=== PATIENT | female | born 1995 | race Caucasian/White ===

== ENCOUNTER 2017-08-14 22:29 | Inpatient (IN) | payer MEDICAID ==
[~2017-08-14] VITALS: Ht 167.6 cm; Wt 59.1 kg
[~2017-08-14 22:29] MED LIST: FLUO-191 PO
[2017-08-15] MEDS ORDERED: DiphenhydrAMINE HCL 50 MG/ML VIAL IM ONE (00:15)
[2017-08-15] MEDS ORDERED: HALOPERIDOL LACTATE 5 MG/ML VIAL IM ONE (00:15)
[2017-08-15] MEDS ORDERED: LORazepam 2 MG/ML VIAL IM ONE (00:15)
[2017-08-15 01:50] LABS: AMPHET/METH SCREEN,URINE POSITIVE (NEGATIVE); BARBITURATE SCREEN, URINE NEGATIVE (NEGATIVE); BENZODIAZEPINES SCREEN,URINE NEGATIVE (NEGATIVE); CANNABINOID SCREEN,URINE NEGATIVE (NEGATIVE); COCAINE SCREEN,URINE NEGATIVE (NEGATIVE); METHADONE SCREEN, URINE NEGATIVE (NEGATIVE); OPIATE SCREEN,URINE NEGATIVE (NEGATIVE); PHENCYCLIDINE SCREEN,URINE NEGATIVE (NEGATIVE)
[2017-08-15] MEDS ORDERED: LORazepam 2 MG TABLET PO PRN (03:45)
[2017-08-15] MEDS ORDERED: ZOLPIDEM TARTRATE 10 MG TABLET PO PRN (03:45)
[2017-08-15] MEDS ORDERED: OLANZapine 5 MG RAPDIS TABLET PO PRN (03:45)
[2017-08-15 04:16] LABS: BASOPHILS % (AUTO) 0.8 % (0.0-2.0); EOSINOPHILS % (AUTO) 3.5 % (1.0-6.0); HEMOGLOBIN 11.6 g/dL (12.0-16.0); LYMPHOCYTES % (AUTO) 40.3 % (22.0-44.0); MEAN CORPUSCULAR HEMOGLOBIN 28.5 pg (26.0-34.0); MEAN CORPUSCULAR HGB CONC 33.2 G/dL (31.0-37.0); MEAN CORPUSCULAR VOLUME 86 fL (80-100); MONOCYTES # (AUTO) 0.6 K/uL (0.1-1.0); MONOCYTES % (AUTO) 7.8 % (2.0-9.0); NEUTROPHILS # (AUTO) 3.5 K/uL (1.8-7.7); NEUTROPHILS % (AUTO) 47.6 % (40.0-70.0); PLATELET COUNT (AUTO) 304 K/uL (150-450); RED BLOOD CELL COUNT(AUTO) 4.07 MIL/uL (4.00-5.20); RED CELL DISTRIBUTION WIDTH 13.2 % (11.5-14.5)
[2017-08-15 04:24] LABS: ANION GAP 8 mmol/L (8-16); CALCIUM, TOTAL 8.8 mg/dL (8.8-10.5); CARBON DIOXIDE 27 mmol/L (22-29); CHLORIDE 103 mmol/L (98-107); CREATININE 0.72 mg/dL (0.60-1.30); GLOMERULAR FILTR. RATE CALC > 60 mL/min (>60); GLUCOSE,RANDOM 69 mg/dL (70-110); POTASSIUM 3.5 mmol/L (3.5-5.1); SODIUM SERUM 138 mmol/L (136-145); UREA NITROGEN, BLOOD 14 mg/dL (7-18)
[2017-08-15 04:29] LABS: ALANINE AMINOTRANSFERASE 28 U/L (12-78); ALBUMIN 3.6 g/dL (3.4-5.0); ALKALINE PHOSPHATASE 68 U/L (46-116); ASPARTATE AMINOTRANSFERASE 32 U/L (15-37)
[2017-08-15 05:27] VITALS: BP 100/60
[2017-08-15 08:07] VITALS: BP 110/68
[2017-08-15 09:00] VITALS: BP 110/68
[2017-08-15] MEDS ORDERED: GuaiFENesin/D-METHORPHAN [SUGAR-FREE] 200-20MG/10 ML SYRUP UDCUP PO PRN (12:00)
[2017-08-15] MEDS ORDERED: MAGNESIUM HYDROXIDE SUSPENSION 30 ML UDCUP PO PRN (12:00)
[2017-08-15] MEDS ORDERED: HydrOXYzine PAMOATE 50 MG CAPSULE PO PRN (12:00)
[2017-08-15] MEDS ORDERED: ACETAMINOPHEN 325 MG TABLET PO PRN (12:00)
[2017-08-15] MEDS ORDERED: LOPERAMIDE HCL 2 MG CAPSULE PO PRN (12:00)
[2017-08-15] MEDS ORDERED: PROMETHAZINE HCL 25 MG TABLET PO PRN (12:00)
[2017-08-15] MEDS ORDERED: TUBERCULIN, PURIFIED PROTEIN DERIVATIVE 5 TU/0.1 ML SYG ID ONE (12:00)
[2017-08-15] MEDS ORDERED: MAG HYDROX/AL HYDROX/SIMETH ES 30 ML SUSPENSION UDCUP PO PRN (12:00)
[2017-08-15 16:16] VITALS: BP 110/67
[2017-08-15 16:30] VITALS: BP 110/67
[2017-08-15] MEDS: THIAMINE HCL 100 MG TABLET PO SCH (17:00)
[2017-08-15] MEDS: OLANZapine 5 MG RAPDIS TABLET PO SCH (20:34)
[2017-08-16 05:34] VITALS: BP 112/70
[2017-08-16 08:11] VITALS: BP 93/63
[2017-08-16 08:24] LABS: CHOL/HDL RATIO 1.7 (3.9-5.7)
[2017-08-16] MEDS: MULTIVITAMINS WITH MINERALS, THERAPEUTIC TABLET PO SCH (09:10)
[2017-08-16] MEDS: NALTREXONE HCL 50 MG TABLET PO SCH (09:10)
[2017-08-16] MEDS: THIAMINE HCL 100 MG TABLET PO SCH ×2 (09:10→17:10)
[2017-08-16] MEDS: FLUoxetine HCL 20 MG CAPSULE PO SCH (09:10)
[2017-08-16] MEDS: FOLIC ACID 1 MG TABLET PO SCH (09:10)
[2017-08-16] MEDS ORDERED: NALT50TA PO (15:20)
[2017-08-16] MEDS ORDERED: OLAN5TAB30 PO (15:20)
[2017-08-16] MEDS ORDERED: FLUO-191 PO (15:20)
[2017-08-16 16:05] VITALS: BP 109/65
[2017-08-16] MEDS: OLANZapine 5 MG RAPDIS TABLET PO SCH (20:08)
[2017-08-17 07:25] VITALS: BP 106/62
[2017-08-17 08:11] VITALS: BP 98/58
[2017-08-17] MEDS ORDERED: NALT50TA6 PO (09:09)
[2017-08-17] MEDS ORDERED: OLAN5TAB40 PO (09:10)
[2017-08-17] MEDS: NALTREXONE HCL 50 MG TABLET PO SCH (09:56)
[2017-08-17] MEDS: FLUoxetine HCL 20 MG CAPSULE PO SCH (09:56)
[2017-08-17] MEDS: FOLIC ACID 1 MG TABLET PO SCH (09:56)
[2017-08-17] MEDS: MULTIVITAMINS WITH MINERALS, THERAPEUTIC TABLET PO SCH (09:56)
[2017-08-17] MEDS: THIAMINE HCL 100 MG TABLET PO SCH ×2 (09:56→16:15)
[2017-08-17 16:22] VITALS: BP 113/60
[2017-08-17] MEDS: OLANZapine 5 MG RAPDIS TABLET PO SCH ×2 (20:26→20:41)
[2017-08-18 08:00] VITALS: BP 110/59
[2017-08-18] MEDS: THIAMINE HCL 100 MG TABLET PO SCH ×2 (09:41→16:42)
[2017-08-18] MEDS: NALTREXONE HCL 50 MG TABLET PO SCH (09:41)
[2017-08-18] MEDS: FOLIC ACID 1 MG TABLET PO SCH (09:41)
[2017-08-18] MEDS: FLUoxetine HCL 20 MG CAPSULE PO SCH (09:41)
[2017-08-18] MEDS: MULTIVITAMINS WITH MINERALS, THERAPEUTIC TABLET PO SCH (09:41)
[2017-08-18 16:03] VITALS: BP 103/71
== END 2017-08-18 18:05 | disposition home or self-care (01) | DRG 750 ==
LOC: EMS 08-15 00:03 → B3A 08-15 03:30
PROVIDERS: ADMIT Psychiatry & Neurology Psychiatry; ATTEND Psychiatry & Neurology Psychiatry
DX: F25.9 Schizoaffective disorder, unspecified (principal); R45.851 Suicidal ideations; Z91.19 Patient's noncompliance with other medical treatment and regimen; F15.10 Other stimulant abuse, uncomplicated; F17.210 Nicotine dependence, cigarettes, uncomplicated; F31.9 Bipolar disorder, unspecified; Z59.0 Homelessness; Z79.899 Other long term (current) drug therapy
CPT/HCPCS: 96372; 99285; G0480; J1200; J1630; J2060

== ENCOUNTER 2017-09-13 18:48 | Emergency (ER) | payer MEDICAID ==
[~2017-09-13] VITALS: Ht 165.1 cm; Wt 59.1 kg
[~2017-09-13 18:48] MED LIST changes: +NALT50TA PO; +NALT50TA6 PO; +OLAN5TAB30 PO; +OLAN5TAB40 PO
[2017-09-13] MEDS ORDERED: HALOPERIDOL LACTATE 5 MG/ML VIAL IM ONE (19:00)
[2017-09-13] MEDS ORDERED: LORazepam 2 MG/ML VIAL IM ONE (19:00)
[2017-09-13] MEDS ORDERED: DiphenhydrAMINE HCL 50 MG/ML VIAL IM ONE (19:00)
[2017-09-13 19:39] LABS: BASOPHILS % (AUTO) 0.7 % (0.0-2.0); EOSINOPHILS % (AUTO) 1.4 % (1.0-6.0); HEMATOCRIT 32.4 % (36-46); HEMOGLOBIN 11.1 g/dL (12.0-16.0); LYMPHOCYTES # (AUTO) 1.7 K/uL (1.0-4.8); LYMPHOCYTES % (AUTO) 16.3 % (22.0-44.0); MEAN CORPUSCULAR HEMOGLOBIN 28.7 pg (26.0-34.0); MEAN CORPUSCULAR HGB CONC 34.2 G/dL (31.0-37.0); MEAN CORPUSCULAR VOLUME 84 fL (80-100); MONOCYTES % (AUTO) 9.8 % (2.0-9.0); NEUTROPHILS # (AUTO) 7.6 K/uL (1.8-7.7); NEUTROPHILS % (AUTO) 71.8 % (40.0-70.0); PLATELET COUNT (AUTO) 301 K/uL (150-450); RED BLOOD CELL COUNT(AUTO) 3.86 MIL/uL (4.00-5.20); RED CELL DISTRIBUTION WIDTH 13.1 % (11.5-14.5)
[2017-09-13 19:52] LABS: ANION GAP 11 mmol/L (8-16); CALCIUM, TOTAL 8.5 mg/dL (8.8-10.5); CARBON DIOXIDE 24 mmol/L (22-29); CHLORIDE 103 mmol/L (98-107); CREATININE 0.84 mg/dL (0.60-1.30); GLOMERULAR FILTR. RATE CALC > 60 mL/min (>60); GLUCOSE,RANDOM 103 mg/dL (70-110); POTASSIUM 3.3 mmol/L (3.5-5.1); SODIUM SERUM 138 mmol/L (136-145); UREA NITROGEN, BLOOD 15 mg/dL (7-18)
[2017-09-13 19:57] LABS: ALANINE AMINOTRANSFERASE 38 U/L (12-78); ALBUMIN 3.7 g/dL (3.4-5.0); ALKALINE PHOSPHATASE 89 U/L (46-116); ASPARTATE AMINOTRANSFERASE 55 U/L (15-37); BILIRUBIN,TOTAL 0.6 mg/dL (0.1-1.0); TOTAL PROTEIN, SERUM 7.2 g/dL (6.4-8.2)
[2017-09-13 20:06] LABS: AMPHET/METH SCREEN,URINE POSITIVE (NEGATIVE); BARBITURATE SCREEN, URINE NEGATIVE (NEGATIVE); BENZODIAZEPINES SCREEN,URINE NEGATIVE (NEGATIVE); CANNABINOID SCREEN,URINE NEGATIVE (NEGATIVE); COCAINE SCREEN,URINE NEGATIVE (NEGATIVE); METHADONE SCREEN, URINE NEGATIVE (NEGATIVE); OPIATE SCREEN,URINE NEGATIVE (NEGATIVE)
[2017-09-13 20:07] LABS: PHENCYCLIDINE SCREEN,URINE NEGATIVE (NEGATIVE)
[2017-09-14 04:00] VITALS: BP 115/70
== END 2017-09-14 07:25 | disposition home or self-care (01) ==
LOC: EMS 18:49
DX: F69 Unspecified disorder of adult personality and behavior (principal); E87.6 Hypokalemia; F15.10 Other stimulant abuse, uncomplicated; F41.9 Anxiety disorder, unspecified; F32.9 Major depressive disorder, single episode, unspecified; F12.90 Cannabis use, unspecified, uncomplicated
CPT/HCPCS: 51702; 80053; 80307; 84703; 85025; 96372; 99291; G0480; J1200; J1630; J2060

== ENCOUNTER 2018-12-08 18:31 | Emergency (ER) | payer MEDICAID ==
[~2018-12-08] VITALS: Ht 167.6 cm; Wt 72.7 kg
[2018-12-08 19:20] VITALS: BP 124/89
[2018-12-08] MEDS ORDERED: SERT50TA12 PO (19:42)
[2018-12-08] MEDS ORDERED: LORazepam 2 MG TABLET PO ONE (21:45)
[2018-12-08] MEDS ORDERED: DiphenhydrAMINE HCL 25 MG CAPSULE PO ONE (21:45)
== END 2018-12-08 22:28 | disposition home or self-care (01) ==
LOC: EMS 18:32
DX: F15.10 Other stimulant abuse, uncomplicated (principal); F41.9 Anxiety disorder, unspecified; F32.9 Major depressive disorder, single episode, unspecified

== ENCOUNTER 2019-07-10 12:54 | Emergency (ER) | payer MEDICAID ==
[~2019-07-10] VITALS: Ht 167.6 cm; Wt 95.5 kg
[~2019-07-10 12:54] MED LIST changes: +SERT50TA12 PO
[2019-07-10] MEDS ORDERED: OLAN2.5T3 PO (12:58)
[2019-07-10] MEDS ORDERED: OLANZapine 5 MG TABLET PO ONE (13:30)
[2019-07-10 14:11] VITALS: BP 123/73
== END 2019-07-10 16:00 | disposition home or self-care (01) ==
LOC: EMS 12:58
DX: F20.9 Schizophrenia, unspecified (principal); F15.90 Other stimulant use, unspecified, uncomplicated

== ENCOUNTER 2020-08-01 18:32 | Emergency (ER) | payer MEDICAID ==
[~2020-08-01] VITALS: Ht 172.7 cm; Wt 118.2 kg
[~2020-08-01 18:32] MED LIST changes: -FLUO-191 PO; -NALT50TA PO; -NALT50TA6 PO; +OLAN2.5T3 PO; -OLAN5TAB30 PO; -OLAN5TAB40 PO; -SERT50TA12 PO
[2020-08-01] MEDS ORDERED: SODIUM CHLORIDE 0.9% 2,000 ML IV ONE (19:00)
[2020-08-01] MEDS ORDERED: ONDANSETRON HCL 4 MG/2 ML VIAL IVP ONE (19:00)
[2020-08-01 19:22] LABS: BASOPHILS % (AUTO) 0.6 % (0.0-2.0); EOSINOPHILS % (AUTO) 1.9 % (1.0-6.0); HEMATOCRIT 39.1 % (36-46); HEMOGLOBIN 12.6 g/dL (12.0-16.0); LYMPHOCYTES # (AUTO) 2.3 K/uL (1.0-4.8); MEAN CORPUSCULAR HEMOGLOBIN 25.6 pg (26.0-34.0); MEAN CORPUSCULAR HGB CONC 32.3 G/dL (31.0-37.0); MEAN CORPUSCULAR VOLUME 79 fL (80-100); MONOCYTES # (AUTO) 0.6 K/uL (0.1-1.0); MONOCYTES % (AUTO) 6.2 % (2.0-9.0); NEUTROPHILS # (AUTO) 7.2 K/uL (1.8-7.7); NEUTROPHILS % (AUTO) 69.3 % (40.0-70.0); PLATELET COUNT (AUTO) 413 K/uL (150-450); RED BLOOD CELL COUNT(AUTO) 4.94 MIL/uL (4.00-5.20); RED CELL DISTRIBUTION WIDTH 14.8 % (11.5-14.5)
[2020-08-01 19:31] LABS: ANION GAP 16 mmol/L (8-16); CALCIUM, TOTAL 8.8 mg/dL (8.8-10.5); CARBON DIOXIDE 20 mmol/L (22-29); CHLORIDE 107 mmol/L (98-107); CREATININE 0.87 mg/dL (0.60-1.30); GLOMERULAR FILTR. RATE CALC > 60 mL/min (>60); GLUCOSE,RANDOM 109 mg/dL (70-110); POTASSIUM 3.6 mmol/L (3.5-5.1); SODIUM SERUM 143 mmol/L (136-145); UREA NITROGEN, BLOOD 11 mg/dL (7-18)
[2020-08-01 19:44] LABS: ALANINE AMINOTRANSFERASE 33 U/L (12-78); ALKALINE PHOSPHATASE 97 U/L (46-116); ASPARTATE AMINOTRANSFERASE 20 U/L (15-37); BILIRUBIN,TOTAL 0.1 mg/dL (0.1-1.0); HCG,QUANTITATIVE < 1 mIU/mL (0-6); LIPASE 275 U/L (73-393); TOTAL PROTEIN, SERUM 7.8 g/dL (6.4-8.2)
[2020-08-01 20:00] VITALS: BP 129/67
== END 2020-08-01 20:45 | disposition home or self-care (01) ==
LOC: EMS 18:32
DX: F10.129 Alcohol abuse with intoxication, unspecified (principal); R10.10 Upper abdominal pain, unspecified; F20.9 Schizophrenia, unspecified; F41.9 Anxiety disorder, unspecified; F32.9 Major depressive disorder, single episode, unspecified; F19.90 Other psychoactive substance use, unspecified, uncomplicated; Z86.59 Personal history of other mental and behavioral disorders; Y90.7 Blood alcohol level of 200-239 mg/100 ml
CPT/HCPCS: 80053; 82962; 83690; 84702; 85025; 96374; 99283; G0480; J2405; J7030

== ENCOUNTER 2020-11-17 03:46 | Emergency (ER) | payer MEDICAID ==
[~2020-11-17] VITALS: Ht 165.1 cm; Wt 113.6 kg
== END 2020-11-17 06:40 | disposition left against medical advice (07) ==
LOC: EMS 03:51
DX: R44.0 Auditory hallucinations (principal); F31.9 Bipolar disorder, unspecified; F41.9 Anxiety disorder, unspecified; F15.90 Other stimulant use, unspecified, uncomplicated; Z79.899 Other long term (current) drug therapy
CPT/HCPCS: 99284

== ENCOUNTER 2020-11-22 17:02 | Emergency (ER) | payer MEDICAID ==
[~2020-11-22] VITALS: Ht 165.1 cm; Wt 125.0 kg
[2020-11-22 17:17] VITALS: BP 127/81
== END 2020-11-22 20:35 | disposition left against medical advice (07) ==
LOC: EMS 17:10
DX: R11.2 Nausea with vomiting, unspecified (principal); Z53.21 Procedure and treatment not carried out due to patient leaving prior to being seen by health care provider

== ENCOUNTER 2024-10-07 12:33 | Emergency (ER) | payer OTHER ==
[~2024-10-07] VITALS: Ht 167.6 cm; Wt 156.4 kg
[~2024-10-07 12:33] MED LIST changes: +LURA60TA PO; -OLAN2.5T3 PO; +TRAZ-252 PO
[2024-10-07 12:45] VITALS: BP 121/95; PULSE 85; RESP 12; TEMP 97.5; O2SAT 100
[2024-10-07 13:06] LABS: PLATELET COUNT (AUTO) 448 K/uL (150-450); RED BLOOD CELL COUNT(AUTO) 5.49 MIL/uL (4.00-5.20); RED CELL DISTRIBUTION WIDTH 17.0 % (11.5-14.5); WHITE BLOOD COUNT (AUTO) 9.6 K/uL (4.5-11.0)
[2024-10-07 13:09] LABS: RBC MORPHOLOGY COMMENT ABNORMAL RBC MORPH
[2024-10-07 13:14] LABS: CALCIUM, TOTAL 8.4 mg/dL (8.8-10.5); CREATININE 0.74 mg/dL (0.60-1.30); GLOMERULAR FILTR. RATE CALC > 60 mL/min (>60); GLUCOSE,RANDOM 125 mg/dL (70-110); SODIUM SERUM 137 mmol/L (136-145); UREA NITROGEN, BLOOD 7 mg/dL (7-18)
[2024-10-07] MEDS ORDERED: TRAZ-257 PO (13:51)
[2024-10-07] MEDS ORDERED: GABA-529 PO (13:51)
[2024-10-07] MEDS ORDERED: XANO1CAP4 PO (13:51)
[2024-10-07] MEDS: ACETAMINOPHEN 500 MG TABLET PO ONE (14:09)
== END 2024-10-07 18:36 | disposition home or self-care (01) ==
LOC: EMS 12:39
DX: F31.9 Bipolar disorder, unspecified (principal); F41.9 Anxiety disorder, unspecified; F20.9 Schizophrenia, unspecified; F15.90 Other stimulant use, unspecified, uncomplicated; Z79.899 Other long term (current) drug therapy
CPT/HCPCS: 99284; 80048; 85025; 36415; G0480

== ENCOUNTER 2024-11-08 12:05 | Inpatient (IN) | payer MEDICAID, OTHER ==
[~2024-11-08] VITALS: Ht 175.3 cm; Wt 159.1 kg
[~2024-11-08 12:05] MED LIST changes: +GABA-529 PO; -LURA60TA PO; -TRAZ-252 PO; +TRAZ-257 PO; +XANO1CAP4 PO
[2024-11-08 12:22] VITALS: O2SAT 98
[2024-11-08 12:27] LABS: COVID AG,FIA SOURCE NASAL SWAB
[2024-11-08 12:31] LABS: PLATELET COUNT (AUTO) 426 K/uL (150-450); RED BLOOD CELL COUNT(AUTO) 4.93 MIL/uL (4.00-5.20); RED CELL DISTRIBUTION WIDTH 17.0 % (11.5-14.5); WHITE BLOOD COUNT (AUTO) 12.4 K/uL (4.5-11.0)
[2024-11-08 12:32] LABS: RBC MORPHOLOGY COMMENT ABNORMAL RBC MORPH
[2024-11-08 12:37] LABS: CALCIUM, TOTAL 8.8 mg/dL (8.8-10.5); CREATININE 0.73 mg/dL (0.60-1.30); GLOMERULAR FILTR. RATE CALC > 60 mL/min (>60); GLUCOSE,RANDOM 116 mg/dL (70-110); SODIUM SERUM 138 mmol/L (136-145); UREA NITROGEN, BLOOD 9 mg/dL (7-18)
[2024-11-08 12:53] LABS: SARS-COV2 (COVID) ANTIGEN,FIA Negative (Negative)
[2024-11-08] MEDS: POTASSIUM CHLORIDE 20 MEQ ER TABLET PO ONE (13:32)
[2024-11-08] MEDS ORDERED: LORazepam 2 MG/ML VIAL ONE (15:46)
[2024-11-08 17:14] VITALS: BP 125/71; PULSE 86; RESP 18; TEMP 97.2; O2SAT 99
[2024-11-08] MEDS: LORazepam 2 MG/ML VIAL IM ONE (17:20)
[2024-11-08 21:44] VITALS: RESP 18
[2024-11-09 20:43] VITALS: BP 101/65; PULSE 88; RESP 18; TEMP 98; O2SAT 99
[2024-11-09] MEDS ORDERED: LOPERAMIDE HCL 2 MG CAPSULE PO PRN (20:45)
[2024-11-09] MEDS ORDERED: BENZOCAINE/MENTHOL [CEPACOL] LOZENGE PO PRN (20:45)
[2024-11-09] MEDS ORDERED: MAG HYDROX/ALUMINUM HYD/SIMETH ES 30 ML SUSPENSION UDCUP PO PRN (20:45)
[2024-11-09] MEDS ORDERED: ALBUTEROL SULFATE HFA 90 MCG/PUFF 8 GM INHALER IH PRN (20:45)
[2024-11-09] MEDS ORDERED: PETROLATUM,WHITE 28 GM JELLY TP PRN (20:45)
[2024-11-09] MEDS ORDERED: IBUPROFEN 600 MG TABLET PO PRN (20:45)
[2024-11-09] MEDS ORDERED: DOCUSATE SODIUM 100 MG CAPSULE PO PRN (20:45)
[2024-11-09] MEDS ORDERED: OMEPRAZOLE 20 MG CAPSULE PO PRN (20:45)
[2024-11-09] MEDS ORDERED: ACETAMINOPHEN 325 MG TABLET PO PRN (20:45)
[2024-11-09] MEDS ORDERED: ONDANSETRON 4 MG TABLET PO PRN (20:45)
[2024-11-09] MEDS ORDERED: MAGNESIUM HYDROXIDE SUSPENSION 30 ML UDCUP PO PRN (20:45)
[2024-11-09] MEDS ORDERED: BACITRACIN 28 GM OINTMENT TP PRN (20:45)
[2024-11-10] MEDS: POTASSIUM CHLORIDE 20 MEQ ER TABLET PO ONE (01:02)
[2024-11-10 08:17] VITALS: BP 100/60; PULSE 87; RESP 18; TEMP 97.5; O2SAT 98
[2024-11-10 09:47] LABS: CALCIUM, TOTAL 8.3 mg/dL (8.8-10.5); CREATININE 0.81 mg/dL (0.60-1.30); GLOMERULAR FILTR. RATE CALC > 60 mL/min (>60); GLUCOSE,RANDOM 125 mg/dL (70-110); SODIUM SERUM 137 mmol/L (136-145); UREA NITROGEN, BLOOD 11 mg/dL (7-18)
[2024-11-10 21:51] VITALS: BP 139/83; PULSE 90; RESP 17; TEMP 97.5; O2SAT 97
[2024-11-11 08:15] VITALS: RESP 18
[2024-11-11 20:29] VITALS: BP 133/90; PULSE 77; RESP 18; TEMP 98.5; O2SAT 98
[2024-11-12 08:29] VITALS: BP 109/66; PULSE 86; RESP 16; TEMP 97.8; O2SAT 98
[2024-11-12 20:11] VITALS: BP 123/74; PULSE 85; RESP 18; TEMP 97.7; O2SAT 99
[2024-11-13 08:07] VITALS: BP 139/88; PULSE 89; RESP 16; TEMP 97.6; O2SAT 99
[2024-11-13] MEDS: SERTRALINE HCL 50 MG TABLET PO SCH (08:41)
[2024-11-13 11:36] LABS: CHOL/HDL RATIO 3.7 (3.9-5.7); LDL CHOL (CALC.) 80.0 mg/dL (0-130)
[2024-11-13 20:06] VITALS: BP 139/92; PULSE 86; RESP 17; TEMP 97.3; O2SAT 100
[2024-11-14 08:31] VITALS: BP 120/72; PULSE 75; RESP 16; TEMP 97.6; O2SAT 96
[2024-11-14 20:36] VITALS: BP 132/92; PULSE 88; RESP 16; TEMP 97.6; O2SAT 98
[2024-11-15 08:27] VITALS: BP 127/76; PULSE 73; RESP 17; TEMP 97.2; O2SAT 97
[2024-11-16 08:11] VITALS: BP 119/72; PULSE 78; RESP 18; TEMP 97.6; O2SAT 100
[2024-11-16 09:25] LABS: APPEARANCE,URINE HAZY (CLEAR); GLUCOSE, URINE (UA) NEGATIVE (NEGATIVE); LEUKOCYTE ESTERASE ,URINE NEGATIVE (NEGATIVE); NITRATE,URINE NEGATIVE (NEGATIVE); OCCULT BLOOD,URINE NEGATIVE (NEGATIVE); PH,URINE DRUG SCREEN 7.0 (5.0-8.0); SPECIFIC GRAVITIY, URINE 1.026 (1.003-1.030)
[2024-11-16 09:45] LABS: ALCOHOL, URINE DRUG SCREEN NEGATIVE (NEGATIVE); AMPHET/METH SCREEN,URINE NEGATIVE (NEGATIVE); BARBITURATE SCREEN, URINE NEGATIVE (NEGATIVE); CANNABINOID SCREEN,URINE NEGATIVE (NEGATIVE); COCAINE SCREEN,URINE NEGATIVE (NEGATIVE); METHADONE SCREEN, URINE NEGATIVE (NEGATIVE)
[2024-11-16 20:11] VITALS: BP 131/80; PULSE 84; RESP 17; TEMP 98; O2SAT 97
[2024-11-17 08:25] VITALS: RESP 18
[2024-11-17 23:34] VITALS: RESP 17
[2024-11-18 08:22] VITALS: BP 118/76; PULSE 83; RESP 18; TEMP 97.9; O2SAT 100
[2024-11-18 20:24] VITALS: BP 124/76; PULSE 94; RESP 16; TEMP 97.6
[2024-11-18 20:33] VITALS: BP 105/70; RESP 18; TEMP 98.2; O2SAT 95
[2024-11-19 10:12] VITALS: BP 123/91; PULSE 80; RESP 16; TEMP 97.2; O2SAT 100
[2024-11-19 20:54] VITALS: BP 134/73; PULSE 73; RESP 17; TEMP 97.4; O2SAT 100
[2024-11-20] MEDS: ZOLPIDEM TARTRATE 10 MG TABLET PO PRN (01:32)
[2024-11-20 08:11] VITALS: BP 143/84; PULSE 73; RESP 16; TEMP 98.3; O2SAT 98
[2024-11-20] MEDS ORDERED: SERT-158 PO (13:42)
[2024-11-20] MEDS ORDERED: RISP-31 PO (13:42)
== END 2024-11-20 16:25 | disposition home or self-care (01) | DRG 761 ==
LOC: EMS 12:05 → B3A 15:03
PROVIDERS: ADMIT Psychiatry & Neurology Psychiatry; ATTEND Psychiatry & Neurology Psychiatry
DX: F25.1 Schizoaffective disorder, depressive type (principal); R45.851 Suicidal ideations; E66.01 Morbid (severe) obesity due to excess calories; K59.00 Constipation, unspecified; F41.9 Anxiety disorder, unspecified; G47.00 Insomnia, unspecified; F12.10 Cannabis abuse, uncomplicated; Z20.822 Contact with and (suspected) exposure to COVID-19; Z68.51 Body mass index [BMI] pediatric, less than 5th percentile for age
CPT/HCPCS: 80048; 80061; 80307; 81003; 83036; 84703; 85025; 99285; G0480; J1200; J1630; J2060

== ENCOUNTER 2025-01-06 21:18 | Inpatient (IN) | payer MEDICAID, OTHER ==
[~2025-01-06] VITALS: Ht 167.6 cm; Wt 152.5 kg
[~2025-01-06 21:18] MED LIST changes: -GABA-529 PO; +RISP-31 PO; +SERT-158 PO; -TRAZ-257 PO; -XANO1CAP4 PO
[2025-01-07 02:47] LABS: PLATELET COUNT (AUTO) 468 K/uL (150-450); RED BLOOD CELL COUNT(AUTO) 4.81 MIL/uL (4.00-5.20); RED CELL DISTRIBUTION WIDTH 15.8 % (11.5-14.5); WHITE BLOOD COUNT (AUTO) 15.3 K/uL (4.5-11.0)
[2025-01-07 02:57] LABS: CALCIUM, TOTAL 8.3 mg/dL (8.8-10.5); CREATININE 0.80 mg/dL (0.60-1.30); GLOMERULAR FILTR. RATE CALC > 60 mL/min (>60); GLUCOSE,RANDOM 125 mg/dL (70-110); SODIUM SERUM 136 mmol/L (136-145); UREA NITROGEN, BLOOD 6 mg/dL (7-18)
[2025-01-07 06:02] LABS: COVID AG,FIA SOURCE NASAL SWAB
[2025-01-07 06:38] LABS: SARS-COV2 (COVID) ANTIGEN,FIA Negative (Negative)
[2025-01-07 06:56] VITALS: O2SAT 97
[2025-01-07 10:09] VITALS: BP 111/64; PULSE 92; RESP 18; TEMP 97.8; O2SAT 98
[2025-01-07] MEDS ORDERED: BACITRACIN 28 GM OINTMENT TP PRN (19:15)
[2025-01-07] MEDS ORDERED: NICOTINE POLACRILEX 4 MG LOZENGE PO PRN (19:15)
[2025-01-07] MEDS ORDERED: ONDANSETRON 4 MG TABLET PO PRN (19:15)
[2025-01-07] MEDS ORDERED: IBUPROFEN 600 MG TABLET PO PRN (19:15)
[2025-01-07] MEDS ORDERED: MAG HYDROX/ALUMINUM HYD/SIMETH ES 30 ML SUSPENSION UDCUP PO PRN (19:15)
[2025-01-07] MEDS ORDERED: PETROLATUM,WHITE 28 GM JELLY TP PRN (19:15)
[2025-01-07] MEDS ORDERED: DOCUSATE SODIUM 100 MG CAPSULE PO PRN (19:15)
[2025-01-07] MEDS ORDERED: MAGNESIUM HYDROXIDE SUSPENSION 30 ML UDCUP PO PRN (19:15)
[2025-01-07] MEDS ORDERED: OMEPRAZOLE 20 MG CAPSULE PO PRN (19:15)
[2025-01-07] MEDS ORDERED: ACETAMINOPHEN 325 MG TABLET PO PRN (19:15)
[2025-01-07] MEDS ORDERED: LOPERAMIDE HCL 2 MG CAPSULE PO PRN (19:15)
[2025-01-07] MEDS ORDERED: ALBUTEROL SULFATE HFA 90 MCG/PUFF 8 GM INHALER IH PRN (19:15)
[2025-01-07] MEDS ORDERED: BENZOCAINE/MENTHOL [CEPACOL] LOZENGE PO PRN (19:15)
[2025-01-07 20:00] VITALS: BP 110/70; PULSE 80; RESP 18; TEMP 97.7; O2SAT 100
[2025-01-08 08:04] LABS: PLATELET COUNT (AUTO) 407 K/uL (150-450); RED BLOOD CELL COUNT(AUTO) 4.71 MIL/uL (4.00-5.20); RED CELL DISTRIBUTION WIDTH 15.2 % (11.5-14.5); WHITE BLOOD COUNT (AUTO) 8.9 K/uL (4.5-11.0)
[2025-01-08 08:17] LABS: ASPARTATE AMINOTRANSFERASE 24 U/L (15-37); CALCIUM, TOTAL 8.1 mg/dL (8.8-10.5); CREATININE 0.49 mg/dL (0.60-1.30); GLOMERULAR FILTR. RATE CALC > 60 mL/min (>60); GLUCOSE,RANDOM 98 mg/dL (70-110); SODIUM SERUM 139 mmol/L (136-145); TOTAL PROTEIN, SERUM 7.3 g/dL (6.4-8.2); UREA NITROGEN, BLOOD 10 mg/dL (7-18)
[2025-01-08] MEDS: SERTRALINE HCL 50 MG TABLET PO SCH (08:48)
[2025-01-08 08:52] VITALS: BP 115/78; PULSE 69; RESP 18; TEMP 98; O2SAT 98
[2025-01-08 09:10] LABS: RBC MORPHOLOGY COMMENT ABNORMAL RBC MORPH
[2025-01-08 20:44] VITALS: BP 124/87; PULSE 98; RESP 18; TEMP 98; O2SAT 99
[2025-01-08] MEDS: ZOLPIDEM TARTRATE 10 MG TABLET PO PRN (21:26)
[2025-01-09 08:00] VITALS: BP 132/88; PULSE 82; RESP 19; TEMP 97.8; O2SAT 97
[2025-01-09 21:29] VITALS: BP 120/83; PULSE 83; RESP 18; TEMP 98.1; O2SAT 97
[2025-01-10 09:55] VITALS: BP 126/83; PULSE 83; RESP 18; TEMP 98; O2SAT 96
[2025-01-10 20:00] VITALS: BP 127/84; PULSE 89; RESP 18; TEMP 98.2; O2SAT 98
[2025-01-11 09:00] VITALS: BP 140/87; PULSE 87; RESP 18; TEMP 97.6; O2SAT 97
[2025-01-11 22:14] VITALS: BP 132/85; PULSE 85; RESP 19; TEMP 97.9; O2SAT 98
[2025-01-12 09:13] VITALS: BP 127/84; PULSE 67; RESP 18; TEMP 97.8; O2SAT 96
[2025-01-12 21:30] VITALS: BP 124/82; PULSE 70; RESP 19; TEMP 98; O2SAT 99
== END 2025-01-13 14:45 | disposition home or self-care (01) | DRG 750 ==
LOC: EMS 21:18 → 3EI 01-07 09:18
PROVIDERS: ADMIT Psychiatry & Neurology Psychiatry; ATTEND Psychiatry & Neurology Psychiatry
DX: F20.9 Schizophrenia, unspecified (principal); Z68.43 Body mass index [BMI] 50.0-59.9, adult; R45.851 Suicidal ideations; F15.10 Other stimulant abuse, uncomplicated; F31.9 Bipolar disorder, unspecified; F12.90 Cannabis use, unspecified, uncomplicated; E66.01 Morbid (severe) obesity due to excess calories; F19.10 Other psychoactive substance abuse, uncomplicated; F41.9 Anxiety disorder, unspecified; G47.00 Insomnia, unspecified; K59.00 Constipation, unspecified; Z20.822 Contact with and (suspected) exposure to COVID-19; Z79.899 Other long term (current) drug therapy; Z87.891 Personal history of nicotine dependence
CPT/HCPCS: 80048; 80053; 85025; 99285; G0480